=== PATIENT | female | born 1960 | race Caucasian/White ===

== ENCOUNTER 2021-01-19 08:18 | Outpatient (CLI) | payer BC ==
[2021-01-19] MEDS ORDERED: PRAV20TA2 PO (09:07)
[2021-01-19 09:13] LABS: MICROSCOPIC NOT IND
[2021-01-19 09:25] LABS: ALANINE AMINOTRANSFERASE 22 U/L (12-78); ANION GAP 6 mmol/L (5-15); CALCIUM 9.2 mg/dL (8.5-10.1); CHLORIDE 103 mmol/L (98-107); CREATININE 0.74 mg/dL (0.55-1.02)
[2021-01-19 09:26] LABS: INTERNATIONAL NORMALIZED RATIO 0.99 (0.93-1.1); PROTHROMBIN TIME 10.6 Seconds (9.6-11.5)
[2021-01-19 09:27] LABS: ALKALINE PHOSPHATASE 74 U/L (45-117); BILIRUBIN,TOTAL 0.5 mg/dL (0.2-1.0); TOTAL PROTEIN 7.8 g/dL (6.4-8.2)
[2021-01-19 09:33] LABS: BASOPHILS % (AUTO) 2 % (0-1); EOSINOPHILS % (AUTO) 9 % (1-7); LYMPHOCYTES % (AUTO) 28 % (22-44); MEAN CORPUSCULAR HEMOGLOBIN 32.4 pg (27.0-34.8); MEAN CORPUSCULAR HGB CONC 34.1 g/dL (32.4-35.8); MEAN PLATELET VOLUME 7.5 fL (7.4-10.4); MONOCYTES % (AUTO) 7 % (2-9); NEUTROPHILS % (AUTO) 54 % (42-75); PLATELET COUNT 269 x10^3/uL (130-400); RED BLOOD COUNT 4.45 x10^6/uL (3.82-5.3); RED CELL DISTRIBUTION WIDTH 12.8 % (9.6-15.2)
== END 2021-01-19 23:59 | disposition home or self-care (01) ==
LOC: STAR 08:18
PROVIDERS: ATTEND Neurological Surgery
DX: Z01.818 Encounter for other preprocedural examination (principal); Z01.810 Encounter for preprocedural cardiovascular examination; Z01.811 Encounter for preprocedural respiratory examination; M48.061 Spinal stenosis, lumbar region without neurogenic claudication; M47.896 Other spondylosis, lumbar region; R79.1 Abnormal coagulation profile; R94.31 Abnormal electrocardiogram [ECG] [EKG]; R82.90 Unspecified abnormal findings in urine; M41.86 Other forms of scoliosis, lumbar region; M25.78 Osteophyte, vertebrae; M51.17 Intervertebral disc disorders with radiculopathy, lumbosacral region
CPT/HCPCS: 36415; 71046; 72110; 80053; 81003; 85025; 85610; 85730; 93005

== ENCOUNTER 2021-02-03 06:42 | Inpatient (IN) | payer BC ==
[~2021-02-03] VITALS: Ht 172.7 cm; Wt 76.1 kg
[~2021-02-03 06:42] MED LIST: CEFAZOLIN 1,000 MG ONE; HEPARIN 1,000 UNITS/ML, 30ML ONE; PRAV20TA2 PO
[2021-02-03] MEDS ORDERED: CHLORHEXIDINE 15 ML UDC ONE (07:15)
[2021-02-03] MEDS ORDERED: LACTATED RINGERS 1,000 ML IV SCH (07:30)
[2021-02-03] MEDS ORDERED: CHLORHEXIDINE 15 ML UDC PO ONE (07:30)
[2021-02-03] MEDS ORDERED: LIDOCAINE-MPF 1%, 2ML ONE (07:52)
[2021-02-03] MEDS ORDERED: MIDAZOLAM 1 MG/ML, 2ML ONE (08:28)
[2021-02-03] MEDS ORDERED: FENTANYL PF 250 MCG/5ML ONE (08:28)
[2021-02-03] MEDS ORDERED: ONDANSETRON 2MG/ML, 2ML IVPush PRN (10:00)
[2021-02-03] MEDS ORDERED: DIAZEPAM 5 MG/ML, 2ML IV PRN ×2 (10:00)
[2021-02-03] MEDS ORDERED: MEPERIDINE/PF 25MG/0.5ML IVPush PRN (10:00)
[2021-02-03] MEDS ORDERED: PROMETHAZINE 25 MG/ML, 1ML IV PRN (10:00)
[2021-02-03] MEDS ORDERED: METOCLOPRAMIDE 5 MG/ML, 2ML IV PRN (10:00)
[2021-02-03] MEDS ORDERED: ALBUTEROL SULFATE 2.5 MG/3 ML NPPB PRN (10:00)
[2021-02-03] MEDS ORDERED: KETOROLAC 30 MG/1 ML IV PRN (10:00)
[2021-02-03] MEDS ORDERED: LABETALOL 5MG/ML, 20ML IV PRN (10:00)
[2021-02-03] MEDS ORDERED: OXYcodone 5 MG/5 ML ORAL.SOL UDC PO PRN (10:00)
[2021-02-03] MEDS ORDERED: hydrALAzine 20 MG/ML, 1ML IV PRN (10:00)
[2021-02-03] MEDS ORDERED: DIPHENHYDRAMINE 50 MG CAPSULE PO PRN (11:30)
[2021-02-03] MEDS ORDERED: PROMETHAZINE 25 MG/ML, 1ML IM PRN (11:30)
[2021-02-03] MEDS ORDERED: LABETALOL 5MG/ML, 20ML IVPush PRN (11:30)
[2021-02-03] MEDS ORDERED: HYDROcodone/APAP 5/325 TABLET PO PRN (11:30)
[2021-02-03] MEDS ORDERED: CEFAZOLIN PMX 1GM/50ML 50 ML IVPB SCH (11:30)
[2021-02-03] MEDS ORDERED: DIPHENHYDRAMINE 50 MG/ML, 1ML IM PRN (11:30)
[2021-02-03] MEDS ORDERED: METHOCARBAMOL 1,000 MG in DEXTROSE 5% 100 ML IV ONE (11:30)
[2021-02-03] MEDS ORDERED: DIPHENHYDRAMINE 50 MG/ML, 1ML IVPush PRN (11:30)
[2021-02-03] MEDS ORDERED: MAGNESIUM HYDROXIDE 8%, 30ML UDC PO PRN (11:30)
[2021-02-03] MEDS ORDERED: PHARMACY MAY ADJ FOR RENAL FX MC PRN (11:30)
[2021-02-03] MEDS ORDERED: BISACODYL 10 MG SUPP PR PRN (11:30)
[2021-02-03] MEDS ORDERED: FENTANYL PF 100 MCG/2ML ONE (11:31)
[2021-02-03] MEDS: FENTANYL PF 100 MCG/2ML IV PRN ×2 (11:33→11:40)
[2021-02-03] MEDS ORDERED: HYDROmorphone 2 MG/ML, 1ML ONE (11:47)
[2021-02-03] MEDS: HYDROmorphone 1 MG/ML, 1ML INJ IV PRN ×3 (11:48→12:08)
[2021-02-03 13:33] VITALS: BP 124/86
[2021-02-03] MEDS: OXYcodone/APAP 5/325MG TABLET PO PRN ×2 (15:40→19:58)
[2021-02-03] MEDS: D5%-0.9% NACL+KCL 20MEQ 1,000 ML IV SCH (16:29)
[2021-02-03] MEDS: CEFAZOLIN PMX 1GM/50ML 50 ML IVPB SCH (17:00)
[2021-02-03] MEDS: ONDANSETRON 2MG/ML, 2ML IVPush PRN (17:50)
[2021-02-03] MEDS: PRAVASTATIN 20 MG TABLET PO SCH (19:58)
[2021-02-03] MEDS: SODIUM CHLORIDE FLUSH 10ML SYR IVF SCH (19:58)
[2021-02-03 20:10] VITALS: BP 119/73
[2021-02-04] MEDS: OXYcodone/APAP 5/325MG TABLET PO PRN ×2 (00:02→21:32)
[2021-02-04] MEDS: METHOCARBAMOL 750 MG TABLET PO PRN (00:02)
[2021-02-04 00:03] VITALS: BP 107/65
[2021-02-04] MEDS: CEFAZOLIN PMX 1GM/50ML 50 ML IVPB SCH ×2 (01:51→21:31)
[2021-02-04] MEDS: D5%-0.9% NACL+KCL 20MEQ 1,000 ML IV SCH ×2 (01:52→09:36)
[2021-02-04] MEDS: ONDANSETRON 2MG/ML, 2ML IVPush PRN (03:14)
[2021-02-04 03:56] VITALS: BP 110/61
[2021-02-04] MEDS: morphine SULFATE 10 MG/ML, 1ML IVPush PRN ×2 (04:01→16:45)
[2021-02-04 05:46] LABS: ALBUMIN 2.7 g/dL (3.4-5.0); ANION GAP 3 mmol/L (5-15); CALCIUM 7.9 mg/dL (8.5-10.1); CHLORIDE 110 mmol/L (98-107); CREATININE 0.54 mg/dL (0.55-1.02)
[2021-02-04 06:25] VITALS: BP 115/65
[2021-02-04] MEDS ORDERED: CEFAZOLIN 1,000 MG ONE (06:51)
[2021-02-04] MEDS ORDERED: EPINEPHRINE 1 MG/ML, 1ML ONE (06:51)
[2021-02-04] MEDS ORDERED: BUPIVACAINE/PF 0.5% ONE (06:51)
[2021-02-04] MEDS: SODIUM CHLORIDE FLUSH 10ML SYR IVF SCH ×2 (08:56→21:32)
[2021-02-04] MEDS ORDERED: FENTANYL PF 250 MCG/5ML ONE ×2 (10:18→12:53)
[2021-02-04] MEDS ORDERED: MIDAZOLAM 1 MG/ML, 2ML ONE (10:18)
[2021-02-04] MEDS ORDERED: CHLORHEXIDINE 15 ML UDC ONE (10:29)
[2021-02-04] MEDS ORDERED: CHLORHEXIDINE 15 ML UDC PO ONE (10:30)
[2021-02-04] MEDS ORDERED: PROPOFOL 100 ML ONE (11:33)
[2021-02-04] MEDS ORDERED: HYDROcodone/APAP 7.5-325MG/15ML UDC PO PRN (13:00)
[2021-02-04] MEDS ORDERED: LORazepam 2 MG/ML, 1ML IVPush PRN (13:00)
[2021-02-04] MEDS ORDERED: HYDROmorphone 1 MG/ML, 1ML INJ IVPush PRN (13:00)
[2021-02-04] MEDS ORDERED: ONDANSETRON 2MG/ML, 2ML IVPush PRN ×2 (13:00→13:30)
[2021-02-04] MEDS ORDERED: MEPERIDINE/PF 25MG/0.5ML IVPush PRN (13:00)
[2021-02-04] MEDS ORDERED: METHOCARBAMOL 1,000 MG in DEXTROSE 5% 100 ML IV PRN (13:00)
[2021-02-04] MEDS ORDERED: PROMETHAZINE 25 MG/ML, 1ML IVPush PRN (13:00)
[2021-02-04] MEDS ORDERED: LABETALOL 5MG/ML, 20ML IV PRN (13:00)
[2021-02-04] MEDS ORDERED: DIPHENHYDRAMINE 50 MG/ML, 1ML IVPush PRN ×2 (13:00→13:30)
[2021-02-04] MEDS ORDERED: OXYcodone/APAP 5/325MG TABLET PO PRN (13:30)
[2021-02-04] MEDS ORDERED: HYDROcodone/APAP 10/325 MG TABLET PO PRN (13:30)
[2021-02-04] MEDS ORDERED: METHOCARBAMOL 1,000 MG in DEXTROSE 5% 100 ML IV ONE (13:30)
[2021-02-04] MEDS ORDERED: METHOCARBAMOL 750 MG TABLET PO PRN (13:30)
[2021-02-04] MEDS ORDERED: HYDROmorphone/PF 4 MG/ML, 1ML IM PRN (13:30)
[2021-02-04] MEDS: NS + 20MEQ KCL 1,000 ML IV SCH ×2 (13:30→15:27)
[2021-02-04] MEDS ORDERED: PHARMACY MAY ADJ FOR RENAL FX MC PRN (13:30)
[2021-02-04] MEDS ORDERED: MAGNESIUM HYDROXIDE 8%, 30ML UDC PO PRN (13:30)
[2021-02-04] MEDS ORDERED: SENNA/DOCUSATE TABLET PO PRN (13:30)
[2021-02-04] MEDS ORDERED: OXYcodone 5 MG/5 ML ORAL.SOL UDC ONE (13:56)
[2021-02-04] MEDS ORDERED: FENTANYL PF 100 MCG/2ML ONE (13:56)
[2021-02-04] MEDS: FENTANYL PF 100 MCG/2ML IV PRN ×2 (14:00→14:25)
[2021-02-04] MEDS ORDERED: OXYcodone 5 MG/5 ML ORAL.SOL UDC PO PRN (14:00)
[2021-02-04 14:45] VITALS: BP 117/66
[2021-02-04 19:33] VITALS: BP 115/68
[2021-02-04] MEDS ORDERED: SODIUM CHLORIDE FLUSH 10ML SYR IVF SCH (21:00)
[2021-02-04] MEDS: SENNA/DOCUSATE TABLET PO PRN (21:31)
[2021-02-04] MEDS: PRAVASTATIN 20 MG TABLET PO SCH (21:31)
[2021-02-05 00:31] VITALS: BP 98/58
[2021-02-05] MEDS: OXYcodone/APAP 5/325MG TABLET PO PRN ×5 (03:54→23:43)
[2021-02-05 05:10] LABS: BASOPHILS % (AUTO) 0 % (0-1); EOSINOPHILS % (AUTO) 0 % (1-7); LYMPHOCYTES % (AUTO) 19 % (22-44); MEAN CORPUSCULAR HEMOGLOBIN 33.4 pg (27.0-34.8); MEAN CORPUSCULAR HGB CONC 35.1 g/dL (32.4-35.8); MEAN PLATELET VOLUME 7.2 fL (7.4-10.4); MONOCYTES % (AUTO) 9 % (2-9); NEUTROPHILS % (AUTO) 72 % (42-75); PLATELET COUNT 176 x10^3/uL (130-400); RED BLOOD COUNT 3.19 x10^6/uL (3.82-5.3); RED CELL DISTRIBUTION WIDTH 12.8 % (9.6-15.2)
[2021-02-05 05:21] LABS: ANION GAP 3 mmol/L (5-15); CALCIUM 7.8 mg/dL (8.5-10.1); CHLORIDE 108 mmol/L (98-107); CREATININE 0.56 mg/dL (0.55-1.02)
[2021-02-05] MEDS: CEFAZOLIN PMX 1GM/50ML 50 ML IVPB SCH (05:56)
[2021-02-05] MEDS: ENOXAPARIN 40 MG/0.4 ML SQ SCH (05:57)
[2021-02-05] MEDS: POLYETHYLENE GLYCOL 17 GM PACKET PO SCH (08:32)
[2021-02-05] MEDS: SODIUM CHLORIDE FLUSH 10ML SYR IVF SCH ×2 (08:32→20:58)
[2021-02-05 09:00] VITALS: BP 112/66
[2021-02-05] MEDS: METHOCARBAMOL 750 MG TABLET PO PRN (11:10)
[2021-02-05] MEDS: NS + 20MEQ KCL 1,000 ML IV SCH (12:51)
[2021-02-05 13:15] VITALS: BP 99/58
[2021-02-05 20:22] VITALS: BP 125/70
[2021-02-05] MEDS: PRAVASTATIN 20 MG TABLET PO SCH (20:57)
[2021-02-05 23:50] VITALS: BP 117/74
[2021-02-06] VITALS (10 sets, daily range): BP systolic 45–118; BP diastolic 29–77
[2021-02-06] MEDS ORDERED: SODIUM CHLORIDE 0.9% 1,000 ML IVBOLUS PRN (00:30)
[2021-02-06] MEDS: OXYcodone/APAP 5/325MG TABLET PO PRN ×5 (04:43→22:14)
[2021-02-06 05:25] LABS: BASOPHILS % (AUTO) 0 % (0-1); EOSINOPHILS % (AUTO) 1 % (1-7); LYMPHOCYTES % (AUTO) 15 % (22-44); MEAN CORPUSCULAR HEMOGLOBIN 33.7 pg (27.0-34.8); MEAN CORPUSCULAR HGB CONC 35.5 g/dL (32.4-35.8); MEAN PLATELET VOLUME 7.4 fL (7.4-10.4); MONOCYTES % (AUTO) 9 % (2-9); NEUTROPHILS % (AUTO) 75 % (42-75); PLATELET COUNT 189 x10^3/uL (130-400); RED BLOOD COUNT 3.38 x10^6/uL (3.82-5.3); RED CELL DISTRIBUTION WIDTH 12.9 % (9.6-15.2)
[2021-02-06] MEDS: NS + 20MEQ KCL 1,000 ML IV SCH ×2 (05:30→18:50)
[2021-02-06 05:43] LABS: CHLORIDE 106 mmol/L (98-107)
[2021-02-06 05:50] LABS: ANION GAP 4 mmol/L (5-15); CALCIUM 8.1 mg/dL (8.5-10.1); CREATININE 0.51 mg/dL (0.55-1.02)
[2021-02-06] MEDS: ENOXAPARIN 40 MG/0.4 ML SQ SCH (07:50)
[2021-02-06] MEDS: POLYETHYLENE GLYCOL 17 GM PACKET PO SCH (08:48)
[2021-02-06] MEDS: SODIUM CHLORIDE FLUSH 10ML SYR IVF SCH ×2 (08:49→22:14)
[2021-02-06] MEDS: SENNA/DOCUSATE TABLET PO PRN (09:07)
[2021-02-06] MEDS ORDERED: HOLD MEDICATION MC PRN (18:00)
[2021-02-06] MEDS ORDERED: MAGNESIUM CITRATE 300ML ORAL SOL PO ONE (19:30)
[2021-02-06] MEDS: PRAVASTATIN 20 MG TABLET PO SCH (22:14)
[2021-02-07] MEDS: OXYcodone/APAP 5/325MG TABLET PO PRN ×3 (02:20→21:29)
[2021-02-07 02:21] VITALS: BP 114/76
[2021-02-07 05:21] LABS: BASOPHILS % (AUTO) 1 % (0-1); EOSINOPHILS % (AUTO) 6 % (1-7); LYMPHOCYTES % (AUTO) 22 % (22-44); MEAN CORPUSCULAR HEMOGLOBIN 33.3 pg (27.0-34.8); MEAN CORPUSCULAR HGB CONC 35.2 g/dL (32.4-35.8); MEAN PLATELET VOLUME 7.1 fL (7.4-10.4); MONOCYTES % (AUTO) 10 % (2-9); NEUTROPHILS % (AUTO) 61 % (42-75); PLATELET COUNT 204 x10^3/uL (130-400); RED BLOOD COUNT 3.34 x10^6/uL (3.82-5.3); RED CELL DISTRIBUTION WIDTH 12.5 % (9.6-15.2)
[2021-02-07 05:35] LABS: CHLORIDE 106 mmol/L (98-107)
[2021-02-07 05:40] LABS: ANION GAP 4 mmol/L (5-15); CALCIUM 8.5 mg/dL (8.5-10.1); CREATININE 0.55 mg/dL (0.55-1.02)
[2021-02-07] MEDS ORDERED: MIDAZOLAM 1 MG/ML, 2ML ONE (06:10)
[2021-02-07] MEDS ORDERED: PROPOFOL 50 ML ONE (06:10)
[2021-02-07] MEDS ORDERED: FENTANYL PF 250 MCG/5ML ONE (06:10)
[2021-02-07] MEDS ORDERED: ONDANSETRON 2MG/ML, 2ML ONE (06:26)
[2021-02-07] MEDS ORDERED: PROPOFOL 10 MG/ML, 20ML ONE (06:26)
[2021-02-07] MEDS ORDERED: NEOSTIGMINE 1 MG/ML, 10ML ONE (06:26)
[2021-02-07] MEDS ORDERED: DEXAMETHASONE 4 MG/ML, 1ML ONE (06:26)
[2021-02-07] MEDS ORDERED: ROCURONIUM 10MG/ML,5ML ONE (06:26)
[2021-02-07] MEDS ORDERED: CEFAZOLIN 1,000 MG ONE ×2 (06:26→06:36)
[2021-02-07] MEDS ORDERED: GLYCOPYRROLATE 0.2MG/1ML, 5ML ONE (06:26)
[2021-02-07] MEDS ORDERED: CHLORHEXIDINE 15 ML UDC ONE (06:26)
[2021-02-07] MEDS ORDERED: CHLORHEXIDINE 15 ML UDC PO ONE (06:30)
[2021-02-07] MEDS ORDERED: EPINEPHRINE 1 MG/ML, 1ML ONE (06:36)
[2021-02-07] MEDS ORDERED: BUPIVACAINE/PF 0.5% ONE (06:36)
[2021-02-07] MEDS ORDERED: VANCOMYCIN 1,000 MG ONE (06:36)
[2021-02-07] MEDS ORDERED: morphine SULFATE 10 MG/ML, 1ML IVPush PRN ×2 (07:00→09:00)
[2021-02-07] MEDS ORDERED: HALOPERIDOL 5 MG/ML IV PRN (07:00)
[2021-02-07] MEDS ORDERED: PROMETHAZINE 25 MG/ML, 1ML IVPush PRN (07:00)
[2021-02-07] MEDS ORDERED: FENTANYL PF 100 MCG/2ML IV PRN (07:00)
[2021-02-07] MEDS ORDERED: MEPERIDINE/PF 25MG/0.5ML IVPush PRN (07:00)
[2021-02-07] MEDS ORDERED: LABETALOL 5MG/ML, 20ML IV PRN (07:00)
[2021-02-07] MEDS ORDERED: OXYcodone 5 MG/5 ML ORAL.SOL UDC PO PRN (07:00)
[2021-02-07] MEDS ORDERED: ACETAMINOPHEN 325 MG TABLET PO PRN (07:00)
[2021-02-07] MEDS ORDERED: hydrALAzine 20 MG/ML, 1ML IV PRN (07:00)
[2021-02-07] MEDS ORDERED: OXYcodone 5 MG/5 ML ORAL.SOL UDC ONE (08:55)
[2021-02-07] MEDS: HYDROmorphone 1 MG/ML, 1ML INJ IVPush PRN ×2 (09:00→09:30)
[2021-02-07] MEDS ORDERED: SENNA/DOCUSATE TABLET PO PRN (09:00)
[2021-02-07] MEDS: SODIUM CHLORIDE FLUSH 10ML SYR IVF SCH ×2 (09:00→21:29)
[2021-02-07] MEDS ORDERED: DIAZEPAM 5 MG/ML, 2ML ONE (09:00)
[2021-02-07] MEDS ORDERED: PHARMACY MAY ADJ FOR RENAL FX MC PRN (09:00)
[2021-02-07] MEDS ORDERED: ONDANSETRON 2MG/ML, 2ML IVPush PRN (09:00)
[2021-02-07] MEDS ORDERED: METHOCARBAMOL 1,000 MG in DEXTROSE 5% 100 ML IV ONE (09:00)
[2021-02-07] MEDS ORDERED: HYDROmorphone 2 MG/ML, 1ML ONE (09:00)
[2021-02-07] MEDS ORDERED: DIAZEPAM 5 MG/ML, 2ML IVPush PRN (09:30)
[2021-02-07] MEDS ORDERED: HYDROcodone/APAP 10/325 MG TABLET PO PRN (09:30)
[2021-02-07] MEDS ORDERED: BISACODYL 10 MG SUPP PR PRN (09:30)
[2021-02-07] MEDS ORDERED: MAGNESIUM HYDROXIDE 8%, 30ML UDC PO PRN (09:30)
[2021-02-07] MEDS ORDERED: DIPHENHYDRAMINE 50 MG CAPSULE PO PRN (09:30)
[2021-02-07] MEDS: POLYETHYLENE GLYCOL 17 GM PACKET PO SCH (10:40)
[2021-02-07 12:40] VITALS: BP 109/71
[2021-02-07] MEDS: NS + 20MEQ KCL 1,000 ML IV SCH (13:48)
[2021-02-07] MEDS: CEFAZOLIN PMX 1GM/50ML 50 ML IVPB SCH ×2 (15:25→23:47)
[2021-02-07 19:27] VITALS: BP 118/74
[2021-02-07] MEDS: METHOCARBAMOL 750 MG TABLET PO PRN (21:28)
[2021-02-07] MEDS: PRAVASTATIN 20 MG TABLET PO SCH (21:29)
[2021-02-07 23:49] VITALS: BP 100/50
[2021-02-08] MEDS: OXYcodone/APAP 5/325MG TABLET PO PRN ×4 (01:58→20:55)
[2021-02-08] MEDS: NS + 20MEQ KCL 1,000 ML IV SCH ×2 (02:20→17:14)
[2021-02-08 05:55] LABS: BASOPHILS % (AUTO) 0 % (0-1); EOSINOPHILS % (AUTO) 1 % (1-7); LYMPHOCYTES % (AUTO) 14 % (22-44); MEAN CORPUSCULAR HEMOGLOBIN 33.4 pg (27.0-34.8); MEAN CORPUSCULAR HGB CONC 35.9 g/dL (32.4-35.8); MEAN PLATELET VOLUME 7.3 fL (7.4-10.4); MONOCYTES % (AUTO) 9 % (2-9); NEUTROPHILS % (AUTO) 76 % (42-75); PLATELET COUNT 234 x10^3/uL (130-400); RED CELL DISTRIBUTION WIDTH 12.8 % (9.6-15.2)
[2021-02-08 05:58] VITALS: BP 120/64
[2021-02-08 06:01] LABS: ANION GAP 4 mmol/L (5-15); CALCIUM 7.9 mg/dL (8.5-10.1); CHLORIDE 105 mmol/L (98-107)
[2021-02-08 06:02] LABS: CREATININE 0.52 mg/dL (0.55-1.02)
[2021-02-08] MEDS: ENOXAPARIN 40 MG/0.4 ML SQ SCH (06:02)
[2021-02-08 07:26] VITALS: BP 104/62
[2021-02-08] MEDS ORDERED: ENOXAPARIN 40 MG/0.4 ML SQ SCH (09:00)
[2021-02-08] MEDS: SODIUM CHLORIDE FLUSH 10ML SYR IVF SCH ×2 (10:00→21:00)
[2021-02-08] MEDS: METHOCARBAMOL 750 MG TABLET PO PRN (10:09)
[2021-02-08] MEDS: POLYETHYLENE GLYCOL 17 GM PACKET PO SCH (10:09)
[2021-02-08 13:14] VITALS: BP 93/59
[2021-02-08 18:54] VITALS: BP 99/59
[2021-02-08] MEDS: PRAVASTATIN 20 MG TABLET PO SCH (20:56)
[2021-02-09] MEDS: OXYcodone/APAP 5/325MG TABLET PO PRN ×3 (00:59→09:17)
[2021-02-09 01:01] VITALS: BP 123/68
[2021-02-09] MEDS: NS + 20MEQ KCL 1,000 ML IV SCH (05:00)
[2021-02-09 05:03] LABS: BASOPHILS % (AUTO) 1 % (0-1); EOSINOPHILS % (AUTO) 7 % (1-7); LYMPHOCYTES % (AUTO) 26 % (22-44); MEAN CORPUSCULAR HEMOGLOBIN 32.5 pg (27.0-34.8); MEAN CORPUSCULAR HGB CONC 34.2 g/dL (32.4-35.8); MONOCYTES % (AUTO) 9 % (2-9); NEUTROPHILS % (AUTO) 57 % (42-75); PLATELET COUNT 272 x10^3/uL (130-400); RED BLOOD COUNT 3.41 x10^6/uL (3.82-5.3); RED CELL DISTRIBUTION WIDTH 12.7 % (9.6-15.2)
[2021-02-09] MEDS: ENOXAPARIN 40 MG/0.4 ML SQ SCH (06:32)
[2021-02-09 07:53] VITALS: BP 118/75
[2021-02-09] MEDS ORDERED: METH-640 PO (08:41)
[2021-02-09] MEDS ORDERED: OXYC-501 PO (08:41)
[2021-02-09] MEDS ORDERED: CEPH500T PO (08:41)
[2021-02-09] MEDS: POLYETHYLENE GLYCOL 17 GM PACKET PO SCH (09:00)
[2021-02-09] MEDS: METHOCARBAMOL 750 MG TABLET PO PRN (09:16)
[2021-02-09] MEDS: SODIUM CHLORIDE FLUSH 10ML SYR IVF SCH (09:18)
== END 2021-02-09 12:45 | disposition home or self-care (01) | DRG 455 ==
LOC: OUT 06:42 → EDSTATUS 09:30 → OUT 11:26 → 4NE 11:26
PROVIDERS: ADMIT Neurological Surgery; ATTEND Neurological Surgery
PROC: 0SG30A0 Fusion of Lumbosacral Joint with Interbody Fusion Device, Anterior Approach, Anterior Column, Open Approach (ICD-10-PCS; 2021-02-03)
PROC: 0SB20ZZ Excision of Lumbar Vertebral Disc, Open Approach (ICD-10-PCS; 2021-02-03)
PROC: 4A11X4G Monitoring of Peripheral Nervous Electrical Activity, Intraoperative, External Approach (ICD-10-PCS; 2021-02-03)
PROC: 0SB40ZZ Excision of Lumbosacral Disc, Open Approach (ICD-10-PCS; principal; 2021-02-03 09:30)
PROC: 0SG00A0 Fusion of Lumbar Vertebral Joint with Interbody Fusion Device, Anterior Approach, Anterior Column, Open Approach (ICD-10-PCS; 2021-02-04)
PROC: 4A11X4G Monitoring of Peripheral Nervous Electrical Activity, Intraoperative, External Approach (ICD-10-PCS; 2021-02-04)
PROC: 0SG0071 Fusion of Lumbar Vertebral Joint with Autologous Tissue Substitute, Posterior Approach, Posterior Column, Open Approach (ICD-10-PCS; 2021-02-07)
PROC: 0SG3071 Fusion of Lumbosacral Joint with Autologous Tissue Substitute, Posterior Approach, Posterior Column, Open Approach (ICD-10-PCS; 2021-02-07)
PROC: 4A11X4G Monitoring of Peripheral Nervous Electrical Activity, Intraoperative, External Approach (ICD-10-PCS; 2021-02-07)
PROC: 8E0W0CZ Robotic Assisted Procedure of Trunk Region, Open Approach (ICD-10-PCS; 2021-02-07)
DX: M51.17 Intervertebral disc disorders with radiculopathy, lumbosacral region (principal); M48.061 Spinal stenosis, lumbar region without neurogenic claudication; M43.16 Spondylolisthesis, lumbar region; G89.4 Chronic pain syndrome; M21.371 Foot drop, right foot; Z20.822 Contact with and (suspected) exposure to COVID-19; Z72.89 Other problems related to lifestyle
CPT/HCPCS: 36415; 72100; 74018; S0020; 72131; 80048; 82040; 85025; 86850; 86900; 87635; 95938; 95941; C1713; C1776; G0378; J0171; J0690; J1100; J1170; J1644; J1650; J2250; J2405; J2550; J2704; J2710; J3010; J3360; J3370; J3480; C1760; C1762; C1769; J2270; J2800; J7120